=== PATIENT | male | born 1960 | race Caucasian/White ===

== ENCOUNTER 2020-12-29 20:35 | Observation (INO) ==
[2020-12-29] MEDS ORDERED: 0.9 % Sodium Chloride 1,000 ML IVC ONE (21:29)
[2020-12-29] MEDS ORDERED: methylPREDNISolone 125 MG/2 ML VIAL IVP ONE (21:36)
[2020-12-29] MEDS ORDERED: Ipratropium/Albuterol Neb 3 ML IH ONE (21:36)
[2020-12-29] MEDS ORDERED: Azithromycin 500 MG in 0.9 % Sodium Chloride 250 ML IVPB ONE (21:41)
[2020-12-29] MEDS ORDERED: cefTRIAXone 1,000 MG in Water for inj. (sterile) 10 ML IVP ONE (21:41)
[2020-12-29 21:54] LABS: Basophils # 0.1 K/mcL (0.0-0.2); Basophils % 0.5 %; Eosinophils % 0.1 %; Hematocrit 49.9 % (37.5-50.1); Hemoglobin 16.4 g/dL (12.9-16.9); Immature Granulocytes % 0.3 % (0-4); Lymphocytes # 0.9 K/mcL (0.6-4.6); Lymphocytes % 7.9 %; Mean Corpuscular HGB Conc 32.9 g/dL (31.6-35.5); Mean Corpuscular Hemoglobin 30.5 pg (28.0-33.3); Mean Corpuscular Volume 92.9 fL (83.0-100.0); Monocytes # 1.1 K/mcL (0.0-1.3); Monocytes % 8.9 %; Neutrophils # 9.8 K/mcL (1.6-8.9); Platelet Count 152 K/mcL (140-400); Red Blood Count 5.37 M/mcL (4.19-5.50); Red Cell Distribution Width 14.3 % (11.5-14.5); Segmented Neutrophils % 82.3 %; White Blood Count 11.9 K/mcL (4.3-11.1)
[2020-12-29 22:15] LABS: BUN/Creatinine Ratio 23 (6-26); Blood Urea Nitrogen 20 mg/dL (8-23); Calcium 8.9 mg/dL (8.6-10.3); Carbon Dioxide 34 mEq/L (23-29); Chloride 91 mEq/L (98-107); Glucose 113 mg/dL (70-105); Osmolality,Calculated 277 (280-300); Potassium 4.2 mEq/L (3.5-5.1); Sodium 132 mEq/L (136-145); eGFR For African Americans > 60 (> 60); eGFR For Non-African Americans > 60 (> 60)
[2020-12-29 22:16] LABS: Troponin I < 0.03 ng/mL (< 0.04)
[2020-12-29] MEDS ORDERED: Albuterol 2.5 MG/3 ML NEBULIZER IH PRN (23:57)
[2020-12-29] MEDS ORDERED: Naloxone 0.4 MG/ML INJ IVP PRN (23:57)
[2020-12-29] MEDS ORDERED: Melatonin 3 MG TABLET PO PRN (23:57)
[2020-12-29] MEDS ORDERED: Ondansetron 4 MG/2 ML VIAL IVP PRN (23:57)
[2020-12-30] MEDS: Albuterol 2.5 MG/3 ML NEBULIZER IH SCH ×6 (00:08→20:08)
[2020-12-30 02:20] LABS: Adenovirus Not Detected (Not Detect); Coronavirus 229E Not Detected (Not Detect); Coronavirus HKU1 Not Detected (Not Detect); Coronavirus NL63 Not Detected (Not Detect); Coronavirus OC43 Not Detected (Not Detect)
[2020-12-30 02:21] LABS: Bordetella Pertussis Not Detected (Not Detect); Chlamydophila pneumoniae Not Detected (Not Detect); Human Metapneumovirus Not Detected (Not Detect); Human Rhinovirus/Enterovirus Not Detected (Not Detect); Influenza A Subtype 2009 H1 Not Detected (Not Detect); Influenza B Not Detected (Not Detect); Mycoplasma pneumoniae Not Detected (Not Detect); Parainfluenza Virus 1 Not Detected (Not Detect); Parainfluenza Virus 2 Not Detected (Not Detect); Parainfluenza Virus 3 DETECTED (Not Detect); Parainfluenza Virus 4 Not Detected (Not Detect); Respiratory Syncytial Virus Not Detected (Not Detect); SARS-CoV-2 Not Detected (Not Detect)
[2020-12-30] MEDS: Nicotine 21 MG PATCH.TD24 TD SCH (03:59)
[2020-12-30 05:52] LABS: Basophils % 0.1 %; Hematocrit 47.4 % (37.5-50.1); Hemoglobin 15.2 g/dL (12.9-16.9); Immature Granulocytes % 0.3 % (0-4); Immature Platelets 8.2 % (1.1-6.1); Lymphocytes # 0.4 K/mcL (0.6-4.6); Lymphocytes % 4.2 %; Mean Corpuscular HGB Conc 32.1 g/dL (31.6-35.5); Mean Corpuscular Volume 93.7 fL (83.0-100.0); Mean Platelet Volume 11.4 fL (9.4-12.4); Monocytes # 0.1 K/mcL (0.0-1.3); Monocytes % 1.1 %; Neutrophils # 9.4 K/mcL (1.6-8.9); Platelet Count 133 K/mcL (140-400); Red Blood Count 5.06 M/mcL (4.19-5.50); Red Cell Distribution Width 14.3 % (11.5-14.5); Segmented Neutrophils % 94.3 %
[2020-12-30 06:09] LABS: Alanine Aminotransferase 22 Units/L (7-52); Albumin 3.3 g/dL (3.5-5.7); Albumin/Globulin Ratio 1.1 (1.1-2.2); Alkaline Phosphatase 76 Units/L (34-104); Aspartate Amino Transferase 19 Units/L (13-39); BUN/Creatinine Ratio 26 (6-26); Bilirubin,Total 0.3 mg/dL (0.3-1.0); Blood Urea Nitrogen 19 mg/dL (8-23); Calcium 8.3 mg/dL (8.6-10.3); Carbon Dioxide 33 mEq/L (23-29); Chloride 97 mEq/L (98-107); Glucose 224 mg/dL (70-105); Osmolality,Calculated 289 (280-300); Potassium 4.3 mEq/L (3.5-5.1); Sodium 135 mEq/L (136-145); Total Protein 6.3 g/dL (6.4-8.9); eGFR For African Americans > 60 (> 60); eGFR For Non-African Americans > 60 (> 60)
[2020-12-30] MEDS: *HR* Heparin 5,000 UNIT/ML VIAL SQ SCH ×2 (06:24→18:06)
[2020-12-30] MEDS ORDERED: cefTRIAXone 1,000 MG in Water for inj. (sterile) 10 ML IVP SCH (09:00)
[2020-12-30] MEDS: Metoprolol XL (24 HR) Succ 25 MG TAB.ER.24H PO SCH (09:03)
[2020-12-30] MEDS: predniSONE 20 MG TABLET PO SCH (09:03)
[2020-12-30] MEDS: levoFLOXacin 750 MG TABLET PO SCH (09:03)
[2020-12-30] MEDS: Aspirin Enteric Coated 81 MG Tablet PO SCH (09:03)
[2020-12-30] MEDS: Acetaminophen 325 MG TABLET PO PRN ×2 (10:22→23:24)
[2020-12-30] MEDS ORDERED: Azithromycin 500 MG in 0.9 % Sodium Chloride 250 ML IVPB SCH (22:00)
[2020-12-30] MEDS: Budesonide/Formoterol 160/4.5 1 PUFF INH IH SCH (22:33)
[2020-12-31] MEDS ORDERED: GuaiFENesin Liq 200 MG/10 ML UDC PO PRN (00:08)
[2020-12-31] MEDS: Albuterol 2.5 MG/3 ML NEBULIZER IH SCH ×3 (00:11→07:23)
[2020-12-31 07:21] VITALS: BP 115/71
[2020-12-31] MEDS: Budesonide/Formoterol 160/4.5 1 PUFF INH IH SCH (07:23)
[2020-12-31] MEDS: *HR* Heparin 5,000 UNIT/ML VIAL SQ SCH (08:34)
[2020-12-31] MEDS: Metoprolol XL (24 HR) Succ 25 MG TAB.ER.24H PO SCH (08:35)
[2020-12-31] MEDS: Aspirin Enteric Coated 81 MG Tablet PO SCH (08:35)
[2020-12-31] MEDS: Nicotine 21 MG PATCH.TD24 TD SCH (08:35)
[2020-12-31] MEDS: predniSONE 20 MG TABLET PO SCH (08:35)
[2020-12-31] MEDS: levoFLOXacin 750 MG TABLET PO SCH (08:35)
== END 2020-12-31 10:31 | disposition home or self-care (01) ==
LOC: EMEROOARM 20:35 → 2ANU 20:35 → SUATTDRO 23:37 → 2ANU 12-30 00:05
PROVIDERS: ADMIT Internal Medicine; ATTEND Internal Medicine

== ENCOUNTER 2021-09-24 07:49 | Inpatient (IN) ==
[2021-09-24] MEDS ORDERED: Ipratropium/Albuterol Neb 3 ML IH ONE (08:08)
[2021-09-24] MEDS ORDERED: methylPREDNISolone 125 MG/2 ML VIAL IVP ONE (08:09)
[2021-09-24 08:20] LABS: Platelet Count 119 K/mcL (140-400); Red Cell Distribution Width 14.1 % (11.5-14.5)
[2021-09-24 08:22] LABS: Basophils % 0.4 %; Hematocrit 52.7 % (37.5-50.1); Hemoglobin 17.5 g/dL (12.9-16.9); Immature Granulocytes % 0.9 % (0-4); Immature Platelets 7.7 % (1.1-6.1); Lymphocytes # 0.7 K/mcL (0.6-4.6); Lymphocytes % 10.1 %; Mean Corpuscular HGB Conc 33.2 g/dL (31.6-35.5); Mean Corpuscular Hemoglobin 31.5 pg (28.0-33.3); Mean Platelet Volume 11.2 fL (9.4-12.4); Monocytes # 0.6 K/mcL (0.0-1.3); Monocytes % 8.6 %; Neutrophils # 5.4 K/mcL (1.6-8.9); Red Blood Count 5.55 M/mcL (4.19-5.50); White Blood Count 6.7 K/mcL (4.3-11.1)
[2021-09-24 08:26] LABS: ABG Base Excess 8 mEq/L (-2 to 3); ABG HCO3 41 mEq/L (21-27); ABG Oxygen Saturation 95 % (95-98); ABG PCO2 98 mmHg (35-45); ABG PH 7.23 pH Units (7.32-7.45); ABG PO2 96 mmHg (85-104); ABG TCO2 45 mEq/L (20-26); Blood Gas Modality NCPAP
[2021-09-24 08:26] LABS: VBG HCO3 38 mEq/L (21-27); VBG PCO2 90 mmHg (41-51); VBG PH 7.24 pH Units (7.32-7.42); VBG PO2 30 mmHg (25-50)
[2021-09-24 08:28] LABS: INR 1.2; Prothrombin Time 12.9 Seconds (9.4-12.1)
[2021-09-24 08:31] LABS: Activated Partial Thrombo Time 33.8 Seconds (26.0-36.0)
[2021-09-24 08:42] LABS: Alanine Aminotransferase 34 Units/L (7-52); Albumin 4.5 g/dL (3.5-5.7); Albumin/Globulin Ratio 1.4 (1.1-2.2); Alkaline Phosphatase 79 Units/L (34-104); Aspartate Amino Transferase 33 Units/L (13-39); BUN/Creatinine Ratio 17 (6-26); Bilirubin,Direct 0.2 mg/dL (0.0-0.2); Bilirubin,Indirect 0.4 mg/dL (0.0-1.0); Bilirubin,Total 0.6 mg/dL (0.3-1.0); Blood Urea Nitrogen 11 mg/dL (8-23); Calcium 9.4 mg/dL (8.6-10.3); Carbon Dioxide 39 mEq/L (23-29); Chloride 87 mEq/L (98-107); Globulin 3.3 g/dL (2.4-3.5); Glucose 146 mg/dL (70-105); Magnesium 1.8 mg/dL (1.6-2.6); Osmolality,Calculated 276 (280-300); Potassium 4.4 mEq/L (3.5-5.1); Sodium 132 mEq/L (136-145); Total Protein 7.8 g/dL (6.4-8.9); Troponin I < 0.03 ng/mL (< 0.04); eGFR For African Americans > 60 (> 60); eGFR For Non-African Americans > 60 (> 60)
[2021-09-24 09:18] LABS: Adenovirus Not Detected (Not Detect); Bordetella Pertussis Not Detected (Not Detect); Chlamydophila pneumoniae Not Detected (Not Detect); Coronavirus 229E Not Detected (Not Detect); Coronavirus HKU1 Not Detected (Not Detect); Coronavirus NL63 Not Detected (Not Detect); Coronavirus OC43 Not Detected (Not Detect); Human Metapneumovirus DETECTED (Not Detect); Human Rhinovirus/Enterovirus Not Detected (Not Detect); Influenza A Subtype 2009 H1 Not Detected (Not Detect); Influenza B Not Detected (Not Detect); Mycoplasma pneumoniae Not Detected (Not Detect); Parainfluenza Virus 1 Not Detected (Not Detect); Parainfluenza Virus 2 Not Detected (Not Detect); Parainfluenza Virus 3 Not Detected (Not Detect); Parainfluenza Virus 4 Not Detected (Not Detect); Respiratory Syncytial Virus Not Detected (Not Detect); SARS-CoV-2 Not Detected (Not Detect)
[2021-09-24] MEDS ORDERED: Naloxone 0.4 MG/ML INJ IVP PRN (10:47)
[2021-09-24] MEDS ORDERED: Ondansetron 4 MG/2 ML VIAL IVP PRN (10:47)
[2021-09-24] MEDS ORDERED: Benzonatate 100 MG CAPSULE PO PRN (10:48)
[2021-09-24 10:54] LABS: ABG Base Excess 7 mEq/L (-2 to 3); ABG HCO3 40 mEq/L (21-27); ABG Oxygen Saturation 93 % (95-98); ABG PCO2 92 mmHg (35-45); ABG PH 7.25 pH Units (7.32-7.45); ABG PO2 85 mmHg (85-104); ABG TCO2 43 mEq/L (20-26)
[2021-09-24 11:48] LABS: Bacteria,Urine Few per hpf (None-Few); Bilirubin,Urine Negative (Negative); Blood,Urine Negative (Negative); Clarity,Urine Clear (Clear); Color,Urine Yellow (Yellow); Glucose,Urine (UA) Normal (Normal); Hyaline Casts,Urine Few per lpf (None Seen); Ketones,Urine Negative (Negative); Leukocyte Esterase,Urine Negative (Negative); Mucus,Urine Few per lpf (None-Few); Nitrite,Urine Negative (Negative); Protein,Urine 50 mg/dL (Neg-Trace); RBC,Urine 0-3 per hpf (0-3); Specific Gravity,Urine 1.024 (1.010-1.025); Squamous Epithelial Cell,Urine Few per hpf (None-Few); Urobilinogen,Urine Normal (Normal); WBC,Urine 0-3 per hpf (0-3)
[2021-09-24] MEDS: *HR* Heparin 5,000 UNIT/ML VIAL SQ SCH (16:49)
[2021-09-24] MEDS: MethylPREDNISolone 40 MG/ML VIAL IVP SCH (16:50)
[2021-09-24] MEDS: Nicotine 21 MG PATCH.TD24 TD SCH (16:50)
[2021-09-24 16:56] LABS: ABG Base Excess 8 mEq/L (-2 to 3); ABG HCO3 39 mEq/L (21-27); ABG Oxygen Saturation 95 % (95-98); ABG PCO2 77 mmHg (35-45); ABG PH 7.31 pH Units (7.32-7.45); ABG PO2 86 mmHg (85-104); ABG TCO2 41 mEq/L (20-26); Blood Gas Modality BiLevel
[2021-09-24] MEDS: Budesonide/Formoterol 160/4.5 1 PUFF INH IH SCH ×2 (20:05→20:13)
[2021-09-25] MEDS: *HR* Heparin 5,000 UNIT/ML VIAL SQ SCH ×3 (05:08→18:12)
[2021-09-25] MEDS: MethylPREDNISolone 40 MG/ML VIAL IVP SCH ×2 (05:08→18:10)
[2021-09-25 06:30] LABS: Basophils % 0.2 %
[2021-09-25 06:41] LABS: Immature Granulocytes % 0.3 % (0-4); Red Cell Distribution Width 14.2 % (11.5-14.5)
[2021-09-25 06:43] LABS: Hematocrit 47.3 % (37.5-50.1); Hemoglobin 15.4 g/dL (12.9-16.9); Immature Platelets 10.6 % (1.1-6.1); Lymphocytes # 0.4 K/mcL (0.6-4.6); Lymphocytes % 7.1 %; Mean Corpuscular HGB Conc 32.6 g/dL (31.6-35.5); Mean Corpuscular Hemoglobin 30.5 pg (28.0-33.3); Mean Corpuscular Volume 93.7 fL (83.0-100.0); Mean Platelet Volume 11.5 fL (9.4-12.4); Monocytes # 0.5 K/mcL (0.0-1.3); Monocytes % 7.6 %; Platelet Count 117 K/mcL (140-400); Red Blood Count 5.05 M/mcL (4.19-5.50); Segmented Neutrophils % 84.8 %; White Blood Count 5.9 K/mcL (4.3-11.1)
[2021-09-25] MEDS: Budesonide/Formoterol 160/4.5 1 PUFF INH IH SCH ×2 (07:36→20:22)
[2021-09-25 07:43] LABS: BUN/Creatinine Ratio 39 (6-26); Blood Urea Nitrogen 22 mg/dL (8-23); Carbon Dioxide 38 mEq/L (23-29); Chloride 90 mEq/L (98-107); Glucose 137 mg/dL (70-105); Magnesium 2.1 mg/dL (1.6-2.6); Osmolality,Calculated 281 (280-300); Potassium 4.8 mEq/L (3.5-5.1); Sodium 133 mEq/L (136-145); eGFR For African Americans > 60 (> 60); eGFR For Non-African Americans > 60 (> 60)
[2021-09-25] MEDS: Acetaminophen 325 MG TABLET PO PRN ×2 (08:16→18:13)
[2021-09-25] MEDS: Aspirin Enteric Coated 81 MG Tablet PO SCH (08:16)
[2021-09-25] MEDS: Furosemide 20 MG TABLET PO SCH (08:16)
[2021-09-25] MEDS: Metoprolol XL (24 HR) Succ 25 MG TAB.ER.24H PO SCH (08:16)
[2021-09-25] MEDS: Nicotine 21 MG PATCH.TD24 TD SCH (08:17)
[2021-09-25] MEDS: Azithromycin 500 MG in 0.9 % Sodium Chloride 250 ML IVPB SCH (08:17)
[2021-09-25 08:52] LABS: VBG HCO3 37 mEq/L (21-27); VBG PCO2 65 mmHg (41-51); VBG PH 7.37 pH Units (7.32-7.42); VBG PO2 99 mmHg (25-50)
[2021-09-26] MEDS ORDERED: Nicotine 21 MG PATCH.TD24 TD ONE (01:33)
[2021-09-26] MEDS: *HR* Heparin 5,000 UNIT/ML VIAL SQ SCH ×2 (05:31→17:03)
[2021-09-26] MEDS: MethylPREDNISolone 40 MG/ML VIAL IVP SCH ×2 (06:15→17:03)
[2021-09-26] MEDS: Aspirin Enteric Coated 81 MG Tablet PO SCH (07:27)
[2021-09-26] MEDS: Metoprolol XL (24 HR) Succ 25 MG TAB.ER.24H PO SCH (07:27)
[2021-09-26] MEDS: Furosemide 20 MG TABLET PO SCH (07:27)
[2021-09-26] MEDS: Acetaminophen 325 MG TABLET PO PRN ×2 (07:27→17:11)
[2021-09-26] MEDS: Azithromycin 500 MG in 0.9 % Sodium Chloride 250 ML IVPB SCH (07:30)
[2021-09-26] MEDS: Nicotine 21 MG PATCH.TD24 TD SCH (07:31)
[2021-09-26] MEDS: Budesonide/Formoterol 160/4.5 1 PUFF INH IH SCH ×2 (07:53→20:36)
[2021-09-27] MEDS: *HR* Heparin 5,000 UNIT/ML VIAL SQ SCH (05:25)
[2021-09-27] MEDS: MethylPREDNISolone 40 MG/ML VIAL IVP SCH (05:25)
[2021-09-27] MEDS: Azithromycin 500 MG in 0.9 % Sodium Chloride 250 ML IVPB SCH (07:49)
[2021-09-27] MEDS: Furosemide 20 MG TABLET PO SCH (07:58)
[2021-09-27] MEDS: Aspirin Enteric Coated 81 MG Tablet PO SCH (07:58)
[2021-09-27] MEDS: Nicotine 21 MG PATCH.TD24 TD SCH (07:59)
[2021-09-27] MEDS: Metoprolol XL (24 HR) Succ 25 MG TAB.ER.24H PO SCH (07:59)
[2021-09-27] MEDS: Budesonide/Formoterol 160/4.5 1 PUFF INH IH SCH (10:53)
[2021-09-27 11:04] VITALS: BP 112/95; PULSE 95; TEMP 97.8
[2021-09-27 15:55] VITALS: O2SAT 97
[2021-09-28] MEDS ORDERED: Azithromycin 250 MG TABLET PO SCH (09:00)
== END 2021-09-27 16:40 | disposition home or self-care (01) | DRG 189 ==
LOC: 2NENU 07:49 → EMEROOARM 07:49 → 2NENU 11:59
PROVIDERS: ADMIT Internal Medicine; ATTEND Internal Medicine